=== PATIENT | female | born 1975 | race Native Hawaiian/Other Pacific Islander ===

== ENCOUNTER 2016-12-03 13:45 | Emergency (ER) | payer OTHER ==
[~2016-12-03] VITALS: Ht 170.2 cm; Wt 90.7 kg
[2016-12-03 14:02] VITALS: BP 204/123; TEMP 98.6
[2016-12-03 14:25] LABS: PLATELET COUNT 221 K/uL (152-353)
[2016-12-03 14:37] LABS: POTASSIUM 3.7 mmol/L (3.6-5.2)
== END 2016-12-03 17:55 | disposition left against medical advice (07) ==
LOC: ED 13:45
DX: N20.1 Calculus of ureter (principal)
CPT/HCPCS: 80053; 81000; 85027; 87086; 87088; 96374; 99284; J1885

== ENCOUNTER 2023-04-21 09:58 | Emergency (ER) | payer OTHER ==
[~2023-04-21] VITALS: Ht 170.2 cm; Wt 111.1 kg
[2023-04-21 12:10] VITALS: BP 134/89; TEMP 98.2
== END 2023-04-21 12:10 | disposition home or self-care (01) ==
LOC: ED 09:58
PROC: 0HQNXZZ Repair Left Foot Skin, External Approach (ICD-10-PCS; principal; 2023-04-21)
DX: S91.115A Laceration without foreign body of left lesser toe(s) without damage to nail, initial encounter (principal); W45.8XXA Other foreign body or object entering through skin, initial encounter
CPT/HCPCS: 90472; 90715; 99283